=== PATIENT | female | born 1980 | race Caucasian/White ===

== ENCOUNTER 2016-03-02 10:23 | Outpatient (CLI) | payer MEDICARE, OTHER ==
[2016-01-23 23:17] VITALS: BP 122/73
== END 2016-03-02 10:25 ==
LOC: LAB 10:23
DX: Z79.899 Other long term (current) drug therapy (principal)
CPT/HCPCS: 36415; 80061; 83036

== ENCOUNTER 2016-03-04 06:05 | Emergency (ER) | payer MEDICARE, OTHER ==
[2016-03-04 06:18] VITALS: BP 125/79
--- NOTE | 2016-03-04 06:47 | ED Physician Documentation ---
Upper Respiratory Symptoms - HISTORIAN Historian: patient - HPI Stated Complaint: Flu Like Symptoms Chief Complaint: Cough/ Upper Respiratory Onset: days ago (Tuesday) Further Comments: yes (36 year old female patient presents with complaints of headache, fever, body aches and sore throat since Tuesday. Took OTC decongestant and tylenol last night.) - ROS CONST/EYES: denies: weakness, eye redness, eye itching CVS/RESP: none LYMPH: denies: leg swelling, rash, swollen glands, ankle swelling GI/: denies: vomiting, nausea, diarrhea - PAST HX Lung Disease: none PE Risk Factors: none Surgeries/Procedures: none Allergies/Adverse Reactions: Allergies Allergy/AdvReac Type Severity Reaction Status Date / Time amoxicillin AdvReac Intermediate Nausea/Vomi Verified 03/04/16 06:18 ting Home Medications: Ambulatory Orders Medication Instructions Recorded Trazodone HCl [Trazodone HCl] 50 mg PO DAILY 03/04/16 - SOCIAL HX Smoking History: cigarettes - FAMILY HX Family History: none - VITAL SIGNS Vital Signs: Vital Signs Temp Pulse Resp BP Pulse Ox 98.1 F 101 H 18 125/79 97 03/04/16 06:05 03/04/16 06:05 03/04/16 06:05 03/04/16 06:05 03/04/16 06:05 - REVIEWED ASSESSMENTS Nursing Assessment Reviewed: Yes Vitals Reviewed: Yes ED Results Lab/Radiology - Orders Orders: ED Orders Category Date Time Status INFLUENZA A&B Stat Lab 03/04/16 06:35 Uncollected Rapid Strep [GRP A STREP SCREEN] Stat Lab 03/04/16 Ordered Upper Respiratory Symptoms - EXAM General Appearance: mild distress EENT: eyes nml inspection, nml ENT inspection, lids & conjunct. nml, PERRL, ear nml, nose nml, airway nml, other (pharyngeal erythema) Respiratory: no resp. distress, breath sounds nml, no pain on inspiration, speaks full sentences, no pleuritic chest pain Abdomen: non-tender, no organomegaly, nml bowel sounds, no distention CVS: reg rate & rhythm, heart sounds normal, equal pulses, no murmur, no gallop , PMI nml, no JVD, no friction rub, 24 Skin: color nml, no rash, warm,dry Extremities: non-tender, normal range of motion, no evidence of injury, no edema , J, [employer] Neuro/Psych: oriented x3, neuro intact, mood/affect nml, CN's nml as tested Discharge Clincal Impression: Viral syndrome Pharyngitis Qualifiers: Pharyngitis/tonsillitis etiology: unspecified etiology Qualified Code(s): J02.9 - Acute pharyngitis, unspecified Referrals: Beulah Sneed FNP [Primary Care Provider] - 2 Days Additional Instructions: 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 You may want to try Vicks rub on your chest and/or feet Cough drops as needed for cough and sore throat. Increase your fluid intake juices, hot tea, non-caffeinated beverages Vitamin C may be helpful in decreasing the length of your cold. Use a humidifier in the room where you sleep. You can also sit in a steam filled bathroom 1-2 times a day. Tylenol every 4 hours 650mg -100mg (do not exceed 4000mg in 24 hours) as needed for fever, pain and body aches. Alternate with Ibuprofen Ibuprofen 600-800mg every 6 hours as needed for fever, pain and body aches. See your primary care doctor if your symptoms become worse or do not improve in the next 2-3 days. Home Medications: Ambulatory Orders Trazodone HCl [Trazodone HCl] 50 mg PO DAILY 03/04/16 Condition: Stable Decision to Admit: NO Decision Time: 06:48
== END 2016-03-04 06:52 ==
LOC: ED 06:05
DX: J06.9 Acute upper respiratory infection, unspecified (principal); J02.9 Acute pharyngitis, unspecified
CPT/HCPCS: 87070; 87400; 87880; 99282

== ENCOUNTER 2016-08-03 15:57 | Outpatient (CLI) | payer MEDICARE, OTHER ==
[2016-08-03 16:14] LABS: BASOPHILS % 0.5 (0.0-1.5); EOSINOPHILS % 2.1 % (0.0-6.8); MEAN CORPUSCULAR HEMOGLOBIN 28.6 pg (28.0-34.0); MEAN CORPUSCULAR VOLUME 82.8 fl (80.0-100.0); MONOCYTES % 3.1 % (0.0-11.0); NEUTROPHILS # 6.2 # k/uL (1.4-7.7)
[2016-08-03 16:42] LABS: BILIRUBIN,DIRECT 0.1 mg/dL (0.0-0.4)
== END 2016-08-03 16:04 | disposition home or self-care (01) ==
LOC: LAB 15:57
PROVIDERS: ATTEND Psychiatry & Neurology Psychiatry
DX: Z79.899 Other long term (current) drug therapy (principal)
CPT/HCPCS: 36415; 80076; 80164; 85025

== ENCOUNTER 2016-08-19 18:33 | Emergency (ER) | payer OTHER ==
[2016-08-19 19:30] VITALS: BP 140/92
--- NOTE | 2016-08-19 19:34 | ED Physician Documentation ---
Female Urogenital Problems - HISTORIAN Historian: patient - HPI Stated Complaint: vaginal bleeding Chief Complaint: Female Urogenital Problems Additional Information: menorhagia recently has been using nuva ring called ob rec reinserttioon but wanted another opinoin. after discussion w/pt will give lo ovral but will try the nuva ring first. pt has ess no c/0 except tired of bleeding she dinies orthostasis or weakness. menses has persisted for about 3 weeks Severity: moderate Location of Pain: pelvic pain (mild), low back pain. denies: R breast, L breast , abdominal pain - Vaginal Bleeding Compared to Menstrual Periods: similiar Description of Menstrual: irregular period(s) - Associated Symptoms Urinary Symptoms: none Discharge: denies: vaginal discharge - ROS CONST: none GI/: denies: nausea, vomiting, decreased appetite EYES/ENT: denies: problems with vision NEURO/PSYCH: none MS/SKIN/LYMPH: none - PAST HX Past History: none Surgeries/Procedures: BTL Allergies/Adverse Reactions: Allergies Allergy/AdvReac Type Severity Reaction Status Date / Time amoxicillin AdvReac Intermediate Nausea/Vomi Verified 08/19/16 18:51 ting Home Medications: Ambulatory Orders Medication Instructions Recorded Trazodone HCl [Trazodone HCl] 50 mg PO DAILY 03/04/16 - SOCIAL HX Smoking History: non-smoker Alcohol Use: occasionally Drug Use: none - FAMILY HX Family History: none - VITAL SIGNS Vital Signs: Vital Signs Temp Pulse Resp BP Pulse Ox 108 H 16 148/94 98 08/19/16 18:35 08/19/16 18:35 08/19/16 18:35 08/19/16 18:35 - REVIEWED ASSESSMENTS Nursing Assessment Reviewed: Yes Vitals Reviewed: Yes Female Urogenital Problems - EXAM General Appearance: mild distress EENT: eye inspection normal Neck: nml inspection Respiratory: no resp. distress, breath sounds nml. No: respiratory distress, stridor, wheezes, rales CVS: reg rate & rhythm, heart sounds normal Abdomen: soft, non-tender, no distention Back: non-tender Skin: color nml, no rash, warm,dry. No: cyanosis, diaphoresis, pallor Extremities: non-tender, normal range of motion Neuro: oriented X3, cognition normal Discharge Clincal Impression: Menorrhagia Referrals: Beulah Sneed FNP [Primary Care Provider] - 2 Days Home Medications: Ambulatory Orders Trazodone HCl [Trazodone HCl] 50 mg PO DAILY 03/04/16 Condition: Good Disposition: HOME, SELF-CARE Decision to Admit: NO Decision Time: 19:33
== END 2016-08-19 19:25 | disposition home or self-care (01) ==
LOC: ED 18:33
DX: N92.0 Excessive and frequent menstruation with regular cycle (principal)
CPT/HCPCS: 99283

== ENCOUNTER 2016-10-16 06:30 | Emergency (ER) | payer OTHER ==
--- NOTE | 2016-10-16 07:09 | ED Physician Documentation ---
General Adult - HISTORIAN Historian: patient - HPI Stated Complaint: cough/congestion Chief Complaint: General Adult Additional Information: coughing and vomiting brownish material which she believes is blood. she has vomited 7-8 times since yesterday am-pmh esophagitis. Onset: days ago (yesterday am) Timing: still present, worse Severity: moderate - ROS CONST: denies: chills CVS/RESP: chest pain, shortness of breath, cough GI/: vomiting, nausea MS/SKIN/LYMPH: none NEURO/PSYCH: denies: headache, fainting, dizziness - PAST HX Past History: other (esophagitis bi polar ) Surgeries/Procedures: BTL - SOCIAL HX Smoking History: non-smoker Alcohol Use: occasionally Drug Use: none - FAMILY HX Family History: No - VITAL SIGNS Vital Signs: Vital Signs Temp Pulse Resp BP Pulse Ox 98.9 F 94 H 16 121/84 96 10/16/16 06:35 10/16/16 06:35 10/16/16 06:35 10/16/16 06:35 10/16/16 06:35 - REVIEWED ASSESSMENTS Nursing Assessment Reviewed: Yes Vitals Reviewed: Yes <Natan Najera - Last Filed: 10/16/16 07:06> - PAST HX Other History: other (Schatzki Ring) - VITAL SIGNS Vital Signs: Vital Signs Temp Pulse Resp BP Pulse Ox 98.9 F 94 H 16 121/84 96 10/16/16 06:35 10/16/16 06:35 10/16/16 06:35 10/16/16 06:35 10/16/16 06:35 <Harris Kirkland - Last Filed: 10/16/16 08:19> - PAST HX Allergies/Adverse Reactions: Allergies Allergy/AdvReac Type Severity Reaction Status Date / Time amoxicillin AdvReac Intermediate Nausea/Vomi Verified 10/16/16 06:42 ting Home Medications: Ambulatory Orders Medication Instructions Recorded Trazodone HCl [Trazodone HCl] 50 mg PO DAILY 03/04/16 Omeprazole [Prilosec] 40 mg PO QDAY 10/16/16 Progress - EKG/XRAY/CT EKG: NSR (HR=78; normal EKG.) XRAY: chest (No acute cardiopulmonary process identified.) <Harris Kirkland - Last Filed: 10/16/16 08:19> ED Results Lab/Radiology - Orders Orders: ED Orders Category Date Time Status Place IV Lock 1T Care 10/16/16 07:05 Ordered CHEST P.A.&LAT 2 VIEWS [RAD] Stat Exams 10/16/16 Ordered CBC/PLATELET/DIFF Routine Lab 10/16/16 Ordered CMP Routine Lab 10/16/16 Ordered PT-INR Routine Lab 10/16/16 Ordered PTT Routine Lab 10/16/16 Ordered URINALYSIS Routine Lab 10/16/16 Ordered NORMAL SALINE @ 500 MLS/HR ( 1000ml BOLUS) Med 10/16/16 07:05 Ordered 0.9 % Sodium Chloride [Normal Saline] 1,000 ml IV Q2H <Natan Najera Last Filed: 10/16/16 07:06> - Orders Orders: ED Orders Category Date Time Status Place IV Lock 1T Care 10/16/16 07:05 Active CHEST P.A.&LAT 2 VIEWS [RAD] Stat Exams 10/16/16 Taken CBC/PLATELET/DIFF Routine Lab 10/16/16 07:15 Received CMP Routine Lab 10/16/16 07:15 Received PT-INR Routine Lab 10/16/16 07:15 Received PTT Routine Lab 10/16/16 07:15 Received TROPONIN I (cTnI) Stat Lab 10/16/16 Ordered URINALYSIS Routine Lab 10/16/16 Ordered 0.9 % Sodium Chloride [Normal Saline] 1,000 ml Med 10/16/16 07:05 Active IV Q2H Pantoprazole Sodium [Protonix] 40 mg Med 10/16/16 08:00 Ordered 0.9 % Sodium Chloride [Sodium Chloride] 50 ml IV DAILY EKG WITH COMPARISON Stat Ther 10/16/16 Ordered <Harris Kirkland - Last Filed: 10/16/16 08:19> General Adult Physical Exam - PHYSICAL EXAM EENT: eye inspection normal NECK: normal inspection RESPIRATORY: breath sounds normal CVS: reg rate & rhythm, heart sounds normal ABDOMEN: soft, non-tender SKIN: warm/dry, normal color. No: cyanosis, diaphoresis, jaundice EXTREMITIES: non-tender, normal range of motion NEURO: oriented X3, motor nml, sensation nml, mood/affect nml, cognition normal <Natan Najera Last Filed: 10/16/16 07:06> Discharge <Natan Najera - Last Filed: 10/16/16 07:06> <Harris Kirkland - Last Filed: 10/16/16 08:19> Referrals: Beulah Sneed FNP [Primary Care Provider] - 2 Days Home Medications: Ambulatory Orders Trazodone HCl [Trazodone HCl] 50 mg PO DAILY 03/04/16 Omeprazole [Prilosec] 40 mg PO QDAY 10/16/16
[2016-10-16 07:22] LABS: BASOPHILS % 0.5 (0.0-1.5); MEAN CORPUSCULAR HEMOGLOBIN 28.3 pg (28.0-34.0)
[2016-10-16] MEDS: 0.9 % SODIUM CHLORIDE 1,000 ML IV ONE (07:30)
[2016-10-16 07:39] LABS: eGFR (African) > 60; eGFR (Non-African) > 60
[2016-10-16] MEDS ORDERED: 0.9 % SODIUM CHLORIDE 100 ML IV ONE (07:54)
[2016-10-16] MEDS ORDERED: PANTOPRAZOLE SODIUM INJ. 40 MG VIAL ONE (07:54)
[2016-10-16] MEDS: PANTOPRAZOLE SODIUM 40 MG in 0.9 % SODIUM CHLORIDE 50 ML IV SCH (08:00)
[2016-10-16 09:36] VITALS: BP 131/81
--- NOTE | 2016-10-17 00:43 | Diagnostic Imaging Report ---
NUSRAT HOLLOWAY~ [facility] [address] [address] ~ ~ ~ ~ Report Submission Date: Oct 16, 2016 7:30:11 AM CDT Patient ~ Study Name: FELI CHUN ~ Date: Oct 16, 2016 7:12:53 AM CDT ~ Modality Type: CR Gender: F ~ Description: CHEST : 80 ~ Institution: [facility] Physician: NUSRAT HOLLOWAY ~ ~ ~ ~ HISTORY: 36-year-old female with cough and vomiting. COMPARISON: Chest x-ray from the same day. TECHNIQUE: 2 views of the chest were performed. FINDINGS: No pneumothorax, consolidative infiltrates, pleural effusions, or pulmonary edema. ~The heart is not enlarged. ~No fracture identified about the bony thorax. ~There is mild thoracic degenerative disc disease. IMPRESSION: No acute cardiopulmonary process identified. ~ Electronically signed on Oct 16, 2016 7:30:11 AM CDT by: Jones Jones Correction: No comparison studies are available. Addendum electronically signed by Jones Jones on October 16, 2016 7:31:05 AM CDT MTDD
== END 2016-10-16 09:34 | disposition home or self-care (01) ==
LOC: ED 06:30
DX: R05 Cough (principal)
CPT/HCPCS: 71020; 80053; 84484; 85025; 85610; 85730; J7030; 96361; 96365; 99283; S1016

== ENCOUNTER 2017-10-22 07:05 | Emergency (ER) | payer MEDICARE, OTHER ==
--- NOTE | 2017-10-22 07:26 | ED Physician Documentation ---
Abdominal Pain - HISTORIAN Historian: patient - HPI Stated Complaint: abdominal pain Chief Complaint: Abdominal Pain Onset: days ago (3) Duration: none Timing: still present Context: denies: out of country travel, bad food, recent trauma Severity: severe (she states 10/10 on pain scale ) Quality: pain, cramping, sharp Associated Symptoms: diarrhea (on none since ). denies: fever, chills, nausea, vomiting, sweating, loss of appetite, back pain Exacerbated by: nothing Relieved by: nothing (she has tried a heating pad with no help ) Further Comments: yes (she reports pain started 3 days ago. She denies any n/v/d although does state she had some diarrhea on Denies any burning with urination or difficulty. No pain with sex no vaginal discharge. She had her last period 3 weeks ago and she is regular on her cycle. Denies any injury . she reports pain is 10/10 on scale of 1/10 she is using her phone and sitting up on side of bed. She easily lays in bed without symptoms of pain or increased pain. She has no rash. Denies any sick contacts. No new food exposures. No new sexual partners. She has tried a heating pad at home with no relief. No OTC meds) - ROS CONST: no problems GI/: none CVS/RESP: none MS/SKIN/LYMPH: none NEURO/PSYCH: none - SOCIAL HX Smoking History: cigarettes Alcohol Use: none Drug Use: none - FAMILY HX Family History: none - PAST HX Past History: other (depression and bi polar ) Ischemic Bowel Risk Factors: none Other History: none Surgeries/Procedures: none Immunizations: referred to PCP Home Medications: Ambulatory Orders Medication Instructions Recorded Divalproex Sodium [Depakote] 500 mg PO TID 10/22/17 Sertraline HCl [Zoloft] 100 mg PO D 10/22/17 Trazodone HCl 25 mg PO D 10/22/17 Allergies/Adverse Reactions: Allergies Allergy/AdvReac Type Severity Reaction Status Date / Time amoxicillin AdvReac Intermediate Nausea/Vomi Verified 10/22/17 13:34 ting - VITAL SIGNS Vital Signs: Vital Signs Temp Pulse Resp BP Pulse Ox 98.6 F 88 14 128/74 97 10/22/17 07:05 10/22/17 13:44 10/22/17 13:44 10/22/17 13:44 10/22/17 13:44 - REVIEWED ASSESSMENTS Nursing Assessment Reviewed: Yes Vitals Reviewed: Yes Progress - Progress Progress: 929: Up to wheelchair without difficulty to CT scan DG 1030: results discussed. She rates pain at 2 on 1/10 scale. Denies any nausea. No pain at this time. Plan is discussed she is agreeable DG ED Results Lab/Radiology - Lab Results Lab Results: Lab Results 10/22/17 10/22/17 10/22/17 10:21 07:37 07:37 WBC 14.50 K/ul H K/ul (4.00-12.00) RBC 5.07 M/ul M/ul (3.90-5.20) Hgb 14.0 g/dL g/dL (12.0-16.0) Hct 41.8 % % (34.5-46.5) MCV 82.5 fl fl (80.0-100.0) MCH 27.6 pg L pg (28.0-34.0) MCHC 33.4 g/dL g/dL (30.0-36.0) RDW 12.5 % % (11.3-14.3) Plt Count 210 K/mm3 K/mm3 (130-400) Neut % (Auto) 82.0 % H % (39.0-79.0) Lymph % (Auto) 12.7 % L % (16.0-50.0) Mcdonald % (Auto) 2.6 % % (0.0-11.0) Eos % (Auto) 1.8 % % (0.0-6.8) Baso % (Auto) 0.3 (0.0-1.5) Neut # (Auto) 11.9 # k/uL H # k/uL (1.4-7.7) Lymph # (Auto) 1.8 # k/uL # k/uL (0.6-4.0) Mcdonald # (Auto) 0.4 # k/uL # k/uL (0.0-0.9) Eos # (Auto) 0.3 # k/uL # k/uL (0.0-0.6) Baso # (Auto) 0.0 # k/uL # k/uL (0.0-0.5) Reactive Lymphs % 0.7 % % (0.0-5.0) Reactive Lymphs # 0.1 # k/uL # k/uL (0.0-0.8) Sodium 133 mmol/L L mmol/L (136-145) Potassium 3.7 mmol/L mmol/L (3.5-5.1) Chloride 99 mmol/L mmol/L (98-107) Carbon Dioxide 23 mmol/L mmol/L (22-30) BUN 9 mg/dL mg/dL (7-17) Creatinine 0.50 mg/dL L mg/dL (0.52-1.04) Est GFR ( Amer) > 60 (60 - ) Est GFR (Non-Af Amer) > 60 (60 - ) Glucose 120 mg/dL H mg/dL (74-106) Calcium 8.8 mg/dL mg/dL (8.4-10.2) Total Bilirubin 0.3 mg/dL mg/dL (0.2-1.3) AST 10 U/L L U/L (15-46) ALT 19 U/L U/L (13-69) Alkaline Phosphatase 80 U/L U/L (38-126) Total Protein 7.6 g/dL g/dL (6.3-8.2) Albumin 3.9 g/dL g/dL (3.5-5.0) Lipase 59 U/L U/L (23-300) Urine Color Urine Appearance Urine pH Ur Specific [place] Urine Protein Urine Ketones Urine Occult Blood Urine Nitrite Urine Bilirubin Urine Urobilinogen Ur Leukocyte Esterase Urine Glucose 10/22/17 07:25 WBC RBC Hgb Hct MCV MCH MCHC RDW Plt Count Neut % (Auto) Lymph % (Auto) Mcdonald % (Auto) Eos % (Auto) Baso % (Auto) Neut # (Auto) Lymph # (Auto) Mcdonald # (Auto) Eos # (Auto) Baso # (Auto) Reactive Lymphs % Reactive Lymphs # Sodium Potassium Chloride Carbon Dioxide BUN Creatinine Est GFR ( Amer) Est GFR (Non-Af Amer) Glucose Calcium Total Bilirubin AST ALT Alkaline Phosphatase Total Protein Albumin Lipase Urine Color Yellow (YELLOW) Urine Appearance Cloudy H (CLEAR) Urine pH 5.5 (5.0 - 8.0) Ur Specific [place] 1.025 (1.010-1.030) Urine Protein Negative mg/dL mg/dL (NEGATIVE) Urine Ketones Negative mg/dL mg/dL (NEGATIVE) Urine Occult Blood Trace-lysed H (NEGATIVE) Urine Nitrite Negative (NEGATIVE) Urine Bilirubin Negative (NEGATIVE) Urine Urobilinogen 0.2 Eu Eu (0.2-1.0) Ur Leukocyte Esterase 1+ H (NEGATIVE) Urine Glucose Negative mg/dL mg/dL (NEGATIVE) - Radiology Radiology Impressions: CT abdomen and pelvis with intravenous contrast History: Abdominal pain Technique: Images through the abdomen and pelvis were obtained following intravenous contrast administration. Findings: The lung bases are clear. There is a large hiatal hernia. Gallstones are present in the gallbladder. There is no biliary duct dilatation. The liver, spleen, pancreas, kidneys and adrenal glands are normal. There is no hydronephrosis, hydroureter, free intraperitoneal air or fluid. There is no bowel obstruction. There are a few colonic diverticula. There is significant inflammatory change involving a short segment of colon at the junction of the descending and sigmoid colon. Findings are consistent with diverticulitis. There is no perforation or abscess formation. The appendix is normal. Uterus is grossly normal. There is no adenopathy. The aorta enhances normally. Impression: Colonic diverticulosis with diverticulitis. Cholelithiasis. Electronically signed on Oct 22, 2017 10:03:00 AM CDT by: Mir Hilario - Orders Orders: ED Orders Category Date Time Status Place IV Lock 1T Care 10/22/17 07:[address] ABD & PELVIS W/ CON Stat Exams 10/22/17 Completed CBC/PLATELET/DIFF Stat Lab 10/22/17 07:37 Completed CMP Stat Lab 10/22/17 07:37 Completed LIPASE Stat Lab 10/22/17 10:21 Completed UA MACRO DIP ONLY Routine Lab 10/22/17 07:25 Completed URINE CULTURE Routine Lab 10/22/17 07:25 Received URINE HCG Stat Lab 10/22/17 Ordered 0.9 % Sodium Chloride [Normal Saline] 1,000 ml Med 10/22/17 07:37 Discontinued IV Q1H Ketorolac Tromethamine [Toradol] Med 10/22/17 09:13 Discontinued 30 mg IVP NOW ONE Abdominal Pain Physical Exam - Physical Exam General Appearance: no acute distress, alert (sitting on side of bed on phone while answering questions ) EENT: eye inspection normal, no signs of dehydration NECK: normal inspection RESPIRATORY: no resp distress, chest non-tender, breath sounds normal CVS: reg rate & rhythm, heart sounds normal, equal pulses ABDOMEN: soft, no distension, non-tender, other (reports pain in LLQ/Bladder area - no grimace with palpation ). No: rebound BACK: normal inspection, no CVA tenderness SKIN: warm/dry, normal color EXTREMITIES: non-tender, normal range of motion, no evidence of injury, no edema NEURO: oriented X3 Vital Signs: Vital Signs Temp Pulse Resp BP Pulse Ox 98.6 F 88 14 128/74 97 10/22/17 07:05 10/22/17 13:44 10/22/17 13:44 10/22/17 13:44 10/22/17 13:44 Discharge Clincal Impression: Diverticulitis Cholelithiasis Qualifiers: Cholelithiasis location: gallbladder Cholecystitis presence: without cholecystitis Biliary obstruction: without biliary obstruction Qualified Code(s): K80.20 - Calculus of gallbladder without cholecystitis without obstruction Referrals: Beulah Sneed FNP [Primary Care Provider] - 2 Days Comments: 1. Clear liquids 2. Advance to bland diet 3. Follow up with PCP Tuesday 4. Return to ER for uncontrolled pain or nausea or fever 5. Cipro 500 mg twice daily x 10 6. metronidazole 500 mg take 1 by mouth every 8 hours x 10 days 7. Zofran 4 mg take 1 by mouth every 8 hours as needed for nausea Condition: Stable Disposition: 01 HOME, SELF-CARE Decision to Admit: NO Date of Decison to Admit: 10/22/17 Decision Time: 10:44
[2017-10-22] MEDS ORDERED: 0.9 % SODIUM CHLORIDE 1,000 ML IV ONE (07:37)
[2017-10-22 08:27] LABS: APPEARANCE,URINE CLOUDY (CLEAR); COLOR,URINE YELLOW (YELLOW); OCCULT BLOOD,URINE TRACE-LYSED (NEGATIVE); PH URINE 5.5 (5.0 - 8.0); UROBILINOGEN URINE 0.2 Eu (0.2-1.0)
[2017-10-22 08:38] LABS: BASOPHILS % 0.3 (0.0-1.5); EOSINOPHILS % 1.8 % (0.0-6.8); MEAN CORPUSCULAR HEMOGLOBIN 27.6 pg (28.0-34.0); MEAN CORPUSCULAR VOLUME 82.5 fl (80.0-100.0); MONOCYTES % 2.6 % (0.0-11.0); NEUTROPHILS # 11.9 # k/uL (1.4-7.7)
[2017-10-22 08:56] LABS: eGFR (Non-African) > 60
[2017-10-22] MEDS ORDERED: KETOROLAC TROMETHAMINE 30 MG/1ML VIAL IVP ONE (09:13)
--- NOTE | 2017-10-22 10:12 | Diagnostic Imaging Report ---
ERNESTINA LOMBARDO [facility] [address] [facility] [address] [place], [place]. [address] Report Submission Date: Oct 22, 2017 10:03:00 AM CDT Patient Study Name: FELI CHUN Date: Oct 22, 2017 9:37:04 AM CDT Modality Type: CT\SR Gender: F Description: CT ABD PELVIS W/ CON : 80 Institution: [facility] Physician: ERNESTINA LOMBARDO CT abdomen and pelvis with intravenous contrast History: Abdominal pain Technique: Images through the abdomen and pelvis were obtained following intravenous contrast administration. Findings: The lung bases are clear. There is a large hiatal hernia. Gallstones are present in the gallbladder. There is no biliary duct dilatation. The liver, spleen, pancreas, kidneys and adrenal glands are normal. There is no hydronephrosis, hydroureter, free intraperitoneal air or fluid. There is no bowel obstruction. There are a few colonic diverticula. There is significant inflammatory change involving a short segment of colon at the junction of the descending and sigmoid colon. Findings are consistent with diverticulitis. There is no perforation or abscess formation. The appendix is normal. Uterus is grossly normal. There is no adenopathy. The aorta enhances normally. Impression: Colonic diverticulosis with diverticulitis. Cholelithiasis. Electronically signed on Oct 22, 2017 10:03:00 AM CDT by: Mir HARRIS
[2017-10-22 13:48] VITALS: BP 128/74
== END 2017-10-22 10:55 | disposition home or self-care (01) ==
LOC: ED 07:05
DX: K80.20 Calculus of gallbladder without cholecystitis without obstruction (principal); K57.90 Diverticulosis of intestine, part unspecified, without perforation or abscess without bleeding
CPT/HCPCS: 74177; 80053; 81002; 83690; 85025; 87086; J1885; J7030; 96365; 96375; 99284; Q9967; S1016

== ENCOUNTER 2017-12-13 04:45 | Emergency (ER) | payer OTHER ==
--- NOTE | 2017-12-13 05:55 | ED Physician Documentation ---
General Adult - HISTORIAN Historian: patient - HPI Stated Complaint: Chest congestion Chief Complaint: Cough/ Upper Respiratory Onset: days ago (3) Timing: still present Severity: mild Further Comments: yes (She has had a cough for three days. One time it made her vomit. She has not had a fever. She denies any OTC med use. she has no sore throat.) - ROS CONST: no problems - PAST HX Past History: none Surgeries/Procedures: none Immunizations: UTD Allergies/Adverse Reactions: Allergies Allergy/AdvReac Type Severity Reaction Status Date / Time amoxicillin AdvReac Intermediate Nausea/Vomi Verified 12/13/17 05:02 ting Home Medications: Ambulatory Orders Medication Instructions Recorded Divalproex Sodium [Depakote] 500 mg PO TID 10/22/17 Sertraline HCl [Zoloft] 100 mg PO D 10/22/17 Trazodone HCl 25 mg PO D 10/22/17 - SOCIAL HX Smoking History: cigarettes Alcohol Use: none Drug Use: none - FAMILY HX Family History: No - VITAL SIGNS Vital Signs: Vital Signs Temp Pulse Resp BP Pulse Ox 97.6 F 93 H 18 128/91 98 12/13/17 04:45 12/13/17 04:45 12/13/17 04:45 12/13/17 04:45 12/13/17 04:45 - REVIEWED ASSESSMENTS Nursing Assessment Reviewed: Yes Vitals Reviewed: Yes ED Results Lab/Radiology - Radiology Radiology Impressions: Clinical history: Chest pain and congestion Technique: anterior /posterior portable upright Findings: The lung rosado are clear. The heart and mediastinal structures are normal. The bony thorax is unremarkable. No pneumothorax or pleural effusion is seen. Impression: No acute pulmonary disease Electronically signed on Dec 13, 2017 5:22:21 AM CDT by: Solo Raya Correct report: Posterior Anterior and lateral chest Clinical history: Cough Technique: Pa and lateral standing upright radiographs Findings: The lung rosado are hyperinflated with flattening of the hemidiaphragms. There is no mass infiltrate or pleural effusions. Thoracic spondylosis is present. Impression: Hyperinflation No acute infiltrate Addendum electronically signed by Solo Raya on December 13, 2017 5:23:26 AM CDT - Orders Orders: ED Orders Category Date Time Status CHEST 2VIEW [RAD] Stat Exams 12/13/17 Ordered General Adult Physical Exam - PHYSICAL EXAM GENERAL APPEARANCE: no distress EENT: eye inspection normal, ENT inspection normal, pharynx normal, no signs of dehydration NECK: normal inspection RESPIRATORY: no resp distress, chest non-tender, breath sounds normal CVS: reg rate & rhythm, heart sounds normal, equal pulses BACK: normal inspection SKIN: warm/dry EXTREMITIES: non-tender, normal range of motion, no evidence of injury, no edema NEURO: oriented X3 Discharge Clincal Impression: Allergic rhinitis Qualifiers: Allergic rhinitis trigger: other Allergic rhinitis seasonality: unspecified Qualified Code(s): J30.89 - Other allergic rhinitis Referrals: Beulah Sneed FNP [Primary Care Provider] - 2 Days Additional Instructions: 1. Continue to take OTC meds for any symptom management 2. salt water gargles 3. Increase fluids 4. See PCP In 2-4 days if no improvement 5. Return to ER for any concerns Condition: Stable Disposition: 01 HOME, SELF-CARE Decision to Admit: NO Date of Decison to Admit: 12/13/17 Decision Time: 06:00
[2017-12-13 06:04] VITALS: BP 105/78
--- NOTE | 2017-12-13 06:42 | Diagnostic Imaging Report ---
ERNESTINA LOMBARDO [facility] [id number] [facility] [address] [place], [place]. [address] Report Submission Date: Dec 13, 2017 5:22:21 AM CDT Patient Study Name: FELI CHUN Date: Dec 13, 2017 5:01:06 AM CDT Modality Type: DX Gender: F Description: CHEST : 80 Institution: [facility] Physician: ERNESTINA LOMBARDO Ap portable upright radiographs of the chest Clinical history: Chest pain and congestion Technique: anterior /posterior portable upright Findings: The lung rosado are clear. The heart and mediastinal structures are normal. The bony thorax is unremarkable. No pneumothorax or pleural effusion is seen. Impression: No acute pulmonary disease Electronically signed on Dec 13, 2017 5:22:21 AM CDT by: Solo Raya Correct report: Posterior Anterior and lateral chest Clinical history: Cough Technique: Pa and lateral standing upright radiographs Findings: The lung rosado are hyperinflated with flattening of the hemidiaphragms. There is no mass infiltrate or pleural effusions. Thoracic spondylosis is present. Impression: Hyperinflation No acute infiltrate Addendum electronically signed by Solo Raya on December 13, 2017 5:23:26 AM CDT [facility]
== END 2017-12-13 06:05 | disposition home or self-care (01) ==
LOC: ED 04:45
DX: J30.89 Other allergic rhinitis (principal)
CPT/HCPCS: 71046